=== PATIENT | female | born 1980 | race Caucasian/White ===

== ENCOUNTER 2016-09-04 18:11 | Emergency (ER) | payer BC ==
[2016-09-04 18:17] VITALS: BP 104/66; PULSE 80; RESP 18; TEMP 97.2; O2SAT 95
--- NOTE | 2016-09-04 18:47 | UCPHY ---
H & P Time Seen by Provider: 09/04/16 18:34 Patient Type: New HPI/ROS: This patient reports a few days of symptoms started with coryza and hoarse voice. Over the past 4 hours she developed a moderate sore throat in addition. She also notes some swelling in her anterior cervical lymph nodes. She has partial improvement from [id number] analgesics with no other exacerbating or alleviating factors. She has a mild dry cough associated with this. ROS: No high fevers or chills. No other constitutional symptoms. HEENT: No ear pain. She still tolerating good p.o. intake. No significant odynophagia. Pulmonary: No pleuritic pain. No dyspnea. Her cough is nonproductive. GI: No nausea vomiting. 7 point ROS is otherwise negative. Past Medical/Surgical History: Otherwise healthy Smoking Status: Never smoked Physical Exam: Physical Exam Vital signs are normal. General: No acute distress HEENT: Nose: Clear discharge bilaterally. No sinus tenderness to percussion. Ears: External canals and tympanic membranes are clear with no erythema or abnormal findings bilaterally. Oropharynx: Minimal erythema with small exudate on the right tonsil. Otherwise normal. She does have mild dysphonia/ hoarseness. N No drooling or stridor. Eyes: Pupils equal and react to light. Extraocular motions are intact. Lungs: Clear to auscultation bilaterally with no rales, rhonchi or wheeze. No respiratory distress. Cardiac: Regular rate and rhythm with no murmur gallop or rub Skin: No rash or pallor. Neuro: Alert with no focal deficits noted. Initial differential diagnosis: Viral laryngitis/pharyngitis, strep pharyngitis Constitutional: Initial Vital Signs Temperature (C) 36.2 C 09/04/16 18:15 Heart Rate 80 09/04/16 18:15 Respiratory Rate 18 09/04/16 18:15 Blood Pressure 104/66 09/04/16 18:15 O2 Sat (%) 95 09/04/16 18:15 O2 Delivery Mode Room Air Allergies/Adverse Reactions: No Known Allergies Allergy (Verified 09/04/16 18:14) Home Medications: Medication Instructions Recorded Bcp 09/04/16 Medical Decision Making ED Course/Re-evaluation: Rapid strep is negative. I counseled the patient regarding viral laryngitis - Data Points Laboratory Results: 09/04/16 09/04/16 Unknown 18:20 Group A Strep Screen NEGATIVE (NEGATIVE) Group A Strep DNA Pending Departure - Departure Disposition: Home, Routine, Self-Care Clinical Impression: Laryngitis Condition: Good Instructions: Laryngitis (ED) Additional Instructions: Diagnosis: Laryngitis and viral pharyngitis Rapid strep test is negative Plan: Humidifier Gargle salt water Ibuprofen Tylenol for discomfort Symptoms should gradually improve over the next 5-7 days. Return for any significant worsening despite the treatment plan Referrals: Kike Myers MD [Primary Care Provider] - As per Instructions - PQRS PQRS Measurement: NA
== END 2016-09-04 18:56 | disposition home or self-care (01) ==
LOC: CED 18:11
DX: J02.9 Acute pharyngitis, unspecified (principal)
CPT/HCPCS: 87880-PO; G0463-PO

== ENCOUNTER 2017-06-27 09:20 | Emergency (ER) | payer BC ==
[2017-06-27 09:33] VITALS: RESP 16; TEMP 98.1
[2017-06-27] MEDS ORDERED: NS 1,000 ML IV ONE (10:58)
[2017-06-27 11:32] LABS: PLATELET COUNT 318 10^3/uL (150-400)
[2017-06-27] MEDS ORDERED: HYDROmorphONE/DILAUDID 1 MG/ML INJ IVP ONE (12:25)
--- NOTE | 2017-06-27 12:51 | EDPHY ---
H & P Stated Complaint: IUD pain shortly after waking up this am, Source: Patient Exam Limitations: No limitations - Personal History LMP (Females 10-55): IUD In Place Current Tetanus Diphtheria and Acellular Pertussis (TDAP): Yes Tetanus Vaccine Date: 2016 - Medical/Surgical History Hx Asthma: No Hx Chronic Respiratory Disease: No Hx Diabetes: No Hx Cardiac Disease: No Hx Renal Disease: No Hx Cirrhosis: No Hx Alcoholism: No Hx HIV/AIDS: No Hx Splenectomy or Spleen Trauma: No Other PMH: EXPLORATORY LAP - Social History Smoking Status: Never smoked Alcohol Use: Occasionally Drug Use: None Time Seen by Provider: 06/27/17 10:01 HPI/ROS: This patient complains of sharp throbbing pain in the right pelvic region 8/10 intensity that started at 7:15 a.m. at rest at home. She does not recall having this pain in the past. The pain does not seem positional or worsen particularly with movement. No other exacerbating factors except for partial relief from Advil-600 mg taken at 8:15 a.m. a.m. she did have a an IUD placed on the 16 of June at the [facility] and had moderate pain and vaginal bleeding thereafter. However it the bleeding has resolved to minimal spotting and pain in nearly resolved prior to the onset of today's pain. The patient walked across the street from where she lives to emergency department for evaluation after speaking with her resident care director who recommended coming in for further evaluation. ROS: No fevers or chills. No other constitutional symptoms HEENT: No complaints line pulmonary: No complaints Cardiovascular: No heart palpitations or lightheadedness GI: She has some nausea that she attributes to the pain but no vomiting. She reports normal bowel movements. Her last meal was breakfast this morning-cereal : No dysuria, frequency urgency. She reports no recent vaginal discharge prior to this. Integumentary: No pallor or skin rash. Endocrine: No complaints Complete review of symptoms is otherwise negative. (Geoff Carlton) - Medical/Surgical History PMH: Endometriosis 10 years ago with laparoscopy at that time for diagnosis. Repeat laparoscopy 2 years ago showed no significant active endometriosis that time. (Geoff Carlton) Constitutional: Initial Vital Signs Temperature (C) 36.7 C 06/27/17 09:27 Heart Rate 65 06/27/17 09:27 Respiratory Rate 16 06/27/17 09:27 Blood Pressure 102/67 06/27/17 09:27 O2 Sat (%) 97 06/27/17 09:27 O2 Delivery Mode Room Air Allergies/Adverse Reactions: acetaminophen [From Percocet] Allergy (Verified 06/27/17 09:33) oxycodone [From Percocet] Allergy (Verified 06/27/17 09:33) Home Medications: Medication Instructions Recorded Cephalexin [Keflex (*)] 500 mg PO Q6 5 Days cap 06/27/17 Medical Decision Making - Diagnostics Imaging: Discussed imaging studies w/ train caller Radiologist - Diagnostics Imaging Results: Imaging Impressions Abdomen Ultrasound 06/27/17 11:26 Impression: Suspicious for early tip appendicitis. Results called and discussed with GEOFF CARLTON, at 06/27/2017 14:11 Pelvic/Renal Ultrasound 06/27/17 11:52 Impression: 1. Normal pelvic sonogram. Results called and discussed with GEOFF CARLTON, at 06/27/2017 14:[address] 06/27/17 14:37 Impression: 1. Appendix in the right posterior pelvis is upper limit normal in size and demonstrates minimal, if any, periappendiceal inflammatory change. 2. Prominent cervix is of unclear significance. 3. Trace free fluid in the pelvis, nonspecific in a female patient. Dr. Patel discussed these findings by telephone with GEOFF CARLTON on at 1352 and again at 1627 hours. ED Course/Re-evaluation: IV is placed and patient initially declined analgesia. However her pain worsened and that she accepted Dilaudid 0.5 mg IV with partial relief At 1400 shortly following her ultrasound studies the patient reports pain is down to 3/10 and she is comfortable at this time. She declines any further analgesia I spoke with Dr. Seals at 2:14 p.m. regarding patient's ultrasound studies -pelvic ultrasound appears normal with normal IUD placement. The abdominal ultrasound however reveals bulbous tip to the appendix that concerns him for potential early appendicitis. I spoke with Dr. Lewis Aragon-general surgeon on-call who requests CT abdomen pelvis with IV contrast for further evaluation of the appendix the studies ordered at 2:35 p.m. At 14 50 the patient reports her pain has increased again to moderate severity and she accepts a dose of Toradol 30 mg IV (Geoff Carlton) I took over care of this patient at 3:00 p.m.. This patient presented to the emergency department with complaint of right lower quadrant pain. Please see above dictation for further details. We are awaiting the results of the CT scan with IV contrast to evaluate for possible appendicitis. 4:20 p.m., spoke with on-call radiologist Dr. Steven Sparks. Results of CT scan of abdomen and pelvis discussed with him in detail. Please see his report for further details. Her CT scan findings are not indicative of acute appendicitis. 4:50 p.m., patient re-evaluated. She is resting comfortably at this time. Repeat abdominal exam she is soft, nontender nondistended. I discussed the results of her CT scan of abdomen and pelvis with her. Her other laboratory results were reviewed with her. I discussed results of her urinalysis which shows possible urinary tract infection. I will treat her with Keflex. She feels comfortable going home at this time. Follow-up and return to emergency department precautions were carefully reviewed with her. All of her questions were answered. She was discharged in good condition. (Melany Leggett) - Data Points Laboratory Results: Laboratory Results 06/27/17 11:15 06/27/17 11:15 06/27/17 06/27/17 06/27/17 11:15 11:15 11:15 WBC RBC Hgb Hct MCV MCH MCHC RDW Plt Count MPV Neut % (Auto) Lymph % (Auto) [place] % (Auto) Eos % (Auto) Baso % (Auto) Nucleat RBC Rel Count Absolute Neuts (auto) Absolute Lymphs (auto) Absolute Monos (auto) Absolute Eos (auto) Absolute Basos (auto) Absolute Nucleated RBC Immature Gran % Immature Gran # Sodium 143 mEq/L mEq/L (134-144) Potassium 4.4 mEq/L mEq/L (3.5-5.2) Chloride 105 mEq/L mEq/L (97-110) Carbon Dioxide 25 mEq/l mEq/l (22-31) Anion Gap 13 mEq/L mEq/L (8-16) BUN 14 mg/dL mg/dL (7-23) Creatinine 0.7 mg/dL mg/dL (0.6-1.0) Estimated GFR > 60 Glucose 79 mg/dL mg/dL (70-100) Calcium 9.3 mg/dL mg/dL (8.5-10.4) Beta HCG, Qual NEGATIVE Urine Color YELLOW Urine Appearance CLEAR Urine pH 6.5 (5.0-7.5) Ur Specific [place] <= 1.005 (1.002-1.030) Urine Protein NEGATIVE (NEGATIVE) Urine Ketones NEGATIVE (NEGATIVE) Urine Blood 1+ H (NEGATIVE) Urine Nitrate NEGATIVE (NEGATIVE) Urine Bilirubin NEGATIVE (NEGATIVE) Urine Urobilinogen 0.2 EU EU (0.2-1.0) Ur Leukocyte Esterase 1+ H (NEGATIVE) Urine RBC 5-10 /hpf H /hpf (0-3) Urine WBC 5-10 /hpf H /hpf (0-3) Ur Epithelial Cells TRACE /lpf /lpf (NONE-1+) Urine Bacteria 1+ /hpf H /hpf (NONE SEEN) Urine Mucus TRACE /lpf /lpf (NONE-1+) Urine Glucose NEGATIVE (NEGATIVE) 06/27/17 11:15 WBC 8.89 10^3/uL 10^3/uL (3.80-9.50) RBC 4.66 10^6/uL 10^6/uL (4.18-5.33) Hgb 14.5 g/dL g/dL (12.6-16.3) Hct 42.4 % % (38.0-47.0) MCV 91.0 fL fL (81.5-99.8) MCH 31.1 pg pg (27.9-34.1) MCHC 34.2 g/dL g/dL (32.4-36.7) RDW 12.3 % % (11.5-15.2) Plt Count 318 10^3/uL 10^3/uL (150-400) MPV 9.7 fL fL (8.7-11.7) Neut % (Auto) 62.0 % % (39.3-74.2) Lymph % (Auto) 27.8 % % (15.0-45.0) [place] % (Auto) 8.7 % % (4.5-13.0) Eos % (Auto) 0.7 % % (0.6-7.6) Baso % (Auto) 0.6 % % (0.3-1.7) Nucleat RBC Rel Count 0.0 % % (0.0-0.2) Absolute Neuts (auto) 5.52 10^3/uL 10^3/uL (1.70-6.50) Absolute Lymphs (auto) 2.47 10^3/uL 10^3/uL (1.00-3.00) Absolute Monos (auto) 0.77 10^3/uL 10^3/uL (0.30-0.80) Absolute Eos (auto) 0.06 10^3/uL 10^3/uL (0.03-0.40) Absolute Basos (auto) 0.05 10^3/uL 10^3/uL (0.02-0.10) Absolute Nucleated RBC 0.00 10^3/uL 10^3/uL (0-0.01) Immature Gran % 0.2 % % (0.0-1.1) Immature Gran # 0.02 10^3/uL 10^3/uL (0.00-0.10) Sodium Potassium Chloride Carbon Dioxide Anion Gap BUN Creatinine Estimated GFR Glucose Calcium Beta HCG, Qual Urine Color Urine Appearance Urine pH Ur Specific [place] Urine Protein Urine Ketones Urine Blood Urine Nitrate Urine Bilirubin Urine Urobilinogen Ur Leukocyte Esterase Urine RBC Urine WBC Ur Epithelial Cells Urine Bacteria Urine Mucus Urine Glucose Medications Given: Discontinued Medications Hydromorphone HCl (Dilaudid) 0.5 mg IVP EDNOW ONE Stop: 06/27/17 12:26 Last Admin: 06/27/17 12:31 Dose: 0.5 mg Sodium Chloride (Ns) 1,000 mls @ 0 mls/hr IV EDNOW ONE; Wide Open PRN Reason: Protocol Stop: 06/27/17 10:59 Last Admin: 06/27/17 11:19 Dose: 1,000 mls Ketorolac Tromethamine (Toradol) 30 mg IVP EDNOW ONE Stop: 06/27/17 14:51 Last Admin: 06/27/17 15:07 Dose: 30 mg Departure - Departure Disposition: [facility] Clinical Impression: Lower abdominal pain, Possible urinary tract infection Condition: Good Instructions: Cephalexin (By mouth), Hydrocodone/Acetaminophen (By mouth), Urinary Tract Infection in Women (ED), Acute Abdominal Pain (ED) Additional Instructions: Read and follow provided instructions. Follow-up with your primary care physician in on Thursday or Thursday for re- evaluation. Your urine study showed evidence of urinary tract infection. He will be treated with the antibiotic Keflex for the next 5 days for this. Ibuprofen dosin mg every 6 hours with meals for the next 3 days only. Do not take until tomorrow morning. Only take for pain. [place]/Percocet dosin-2 every 4-6 hours for [address] not drive on this medication. Return to the emergency department for worsening lower abdominal pain, persisting pain, fever, vomiting or other serious concerns. Referrals: Afsaneh Maddox DO [Primary Care Provider] - As per Instructions Prescriptions: Cephalexin [Keflex (*)] 500 mg PO Q6 5 Days cap
[2017-06-27] MEDS ORDERED: IOPAMIDOL (ISOVUE-300) 100 ML BTL ONE (14:48)
[2017-06-27] MEDS ORDERED: KETOROLAC 30 MG/1 ML SDV IVP ONE (14:50)
[2017-06-27 16:58] VITALS: BP 111/61; PULSE 59; O2SAT 96
[2017-06-27] MEDS ORDERED: CEPHALEXIN 500MG PREPACK#4 BTL TAKEHOME ONE (17:02)
[2017-06-27] MEDS ORDERED: HYDROCOD/APAP 5/325 PREPACK#6 BTL TAKEHOME ONE (17:02)
== END 2017-06-27 17:15 | disposition home or self-care (01) ==
LOC: CED 09:20
DX: R10.31 Right lower quadrant pain (principal)
CPT/HCPCS: 74177-PO; 76705-PO; 76856-PO; 80048-PO; 81003-PO; 81015-PO; 84703-PO; 85025-PO; 96374; J1170; J1885; Q9967